=== PATIENT | female | born 1995 | race Caucasian/White ===

== ENCOUNTER 2018-03-16 13:30 | Emergency (ER) | payer BC ==
--- NOTE | 2018-03-16 14:44 | UC ---
Respiratory Complaint HPI - HPI Summary HPI Summary: 22 yo female with cough/sinus pressure and pain/congestion /post nasal drip x 1 week has felt feverish has had chills no CP or sob no n/v/d no uti symptoms sore throat and fatigue she has had mono hx T&A - History of Current Complaint Chief Complaint: UCRespiratory Stated Complaint: URI Time Seen by Provider: 03/16/18 14:34 Hx Obtained From: Patient Onset/Duration: Gradual Onset, Lasting Days Severity Initially: Mild Severity Currently: Mild Pain Intensity: 4 Pain Scale Used: 0-10 Numeric Character: Cough: Nonproductive Aggravating Factors: Nothing Associated Signs And Symptoms: Positive: Fever, Chills, Nasal Congestion, Hoarseness, Sinus Discomfort - Allergies/Home Medications Allergies/Adverse Reactions: Allergies Allergy/AdvReac Type Severity Reaction Status Date / Time No Known Allergies Allergy Verified 03/16/18 14:03 Home Medications: Home Medications Cetirizine* [ZyrTEC 10 MG TAB*] 10 mg PO DAILY 03/16/18 [History Confirmed 03/16] Norethindrone-E.estradiol-Iron [Blisovi Fe 1.5/30 1.5-30 mg-Mcg] 1 tab PO [History] PMH/Surg Hx/FS Hx/Imm Hx Previously Healthy: Yes - Surgical History Surgical History: Yes Surgery Procedure, Year, and Place: t&a - Social History Alcohol Use: Occasionally Substance Use Type: None Smoking Status (MU): Never Smoked Tobacco Review of Systems Constitutional: Fever, Chills, Fatigue Skin: Negative Eyes: Negative ENT: Sore Throat, Ear Ache, Nasal Discharge, Sinus Congestion, Sinus Pain/ Tenderness Respiratory: Cough Cardiovascular: Negative Gastrointestinal: Negative Genitourinary: Negative Motor: Negative Neurovascular: Negative Musculoskeletal: Negative Neurological: Negative Psychological: Negative All Other Systems Reviewed And Are Negative: Yes Physical Exam Triage Information Reviewed: Yes Appearance: Well-Appearing, No Pain Distress, Well-Nourished Vital Signs: Initial Vital Signs Temp 97.9 F 03/16/18 13:59 Pulse 60 03/16/18 13:59 Resp 18 03/16/18 13:59 BP 99/48 03/16/18 13:59 Pulse Ox 100 03/16/18 13:59 Vital Signs Reviewed: Yes Eyes: Positive: Conjunctiva Clear ENT: Positive: Hearing grossly normal, Pharynx normal, Nasal congestion, Nasal drainage, TM bulging, Sinus tenderness, Uvula midline. Negative: Tonsillar swelling, Tonsillar exudate, Trismus, Muffled voice, Hoarse voice, Dental tenderness Neck: Positive: Supple, Nontender, No Lymphadenopathy Respiratory: Positive: Lungs clear, Normal breath sounds, No respiratory distress, No accessory muscle use Cardiovascular: Positive: RRR, No Murmur Musculoskeletal: Positive: ROM Intact, No Edema Neurological: Positive: Alert Psychological Exam: Normal Skin Exam: Normal UC Diagnostic Evaluation - Laboratory O2 Sat by Pulse Oximetry: 100 - normal/not hypoxic Respiratory Course/Dx - Differential Dx/Diagnosis Provider Diagnoses: acute sinusitis. bilateral serous otitis media Discharge - Sign-Out/Discharge Documenting (check all that apply): Patient Departure All imaging exams completed and their final reports reviewed: No Studies - Discharge Plan Condition: Stable Disposition: HOME Prescriptions: Amoxicillin PO (*) [Amoxicillin 875 MG (*)] 875 mg PO BID #14 tab Fluticasone NASAL SPRAY 50MCG* [Flonase NASAL SPRAY 50MCG*] 2 spray BOTH NARES BID #1 btl Patient Education Materials: Sinusitis (ED), Serous Otitis Media (ED) Referrals: No Primary Care Phys,NOPCP [Primary Care Provider] - Additional Instructions: recheck in 4-7 days if not better - Billing Disposition and Condition Condition: STABLE Disposition: Home
== END 2018-03-16 14:50 | disposition home or self-care (01) ==
LOC: UCEAST 13:30
DX: J01.90 Acute sinusitis, unspecified (principal); H65.93 Unspecified nonsuppurative otitis media, bilateral
CPT/HCPCS: 99202; G0463

== ENCOUNTER → 2018-06-02 19:13 | Emergency (ER) | payer BC ==
--- NOTE | 2018-06-02 22:00 | ED ---
Syncope/Near Syncope - HPI Summary HPI Summary: This patient is a 22 year old F presenting to [facility] accompanied by a friend with a chief complaint of syncopal episode since 17:30. 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 Pt notes that prior to her syncopal episode she had a sharp pain in her throat with inhalation. Pt reports that her episode was witnessed by several other students, she regained consciousness after 5-7 seconds and initially she did not know where she was and was unable to move. The patient rates the pain 0/10 in severity. Symptoms aggravated by exercise. Symptoms alleviated by nothing. Patient reports nausea, lightheadedness, back pain that began prior to her syncopal episode. Hx asthma. - History Of Current Complaint Chief Complaint: EDChestWallPain Time Seen by Provider: 06/02/18 21:49 Hx Obtained From: Patient Onset/Duration: Sudden Onset, Resolved Timing: Seconds Context: Witnessed, Loss Of Consciousness Activity At Onset: Other - pending down to set down her water bottle Associated Head Trauma: No Aggravating Factor(s): Exertion - exercise Alleviating Factor(s): Nothing Associated Signs And Symptoms: Lightheadedness, Other - nausea, back pain - Allergies/Home Medications Allergies/Adverse Reactions: Allergies Allergy/AdvReac Type Severity Reaction Status Date / Time No Known Allergies Allergy Verified 03/16/18 14:03 PMH/Surg Hx/FS Hx/Imm Hx Endocrine/Hematology History: Denies: Hx Diabetes Respiratory History: Reports: Hx Asthma Opthamlomology History: Denies: Hx Legally Blind EENT History: Denies: Hx Deafness - Surgical History Surgery Procedure, Year, and Place: t&a Infectious Disease History: No Infectious Disease History: Denies: Traveled Outside the [place] in Last 30 Days - Family History Known Family History: Negative: Diabetes - Social History Alcohol Use: Occasionally Substance Use Type: Reports: None Smoking Status (MU): Never Smoked Tobacco Review of Systems Negative: Fever Negative: Epistaxis Positive: Nausea Positive: Myalgia - back pain Neurological: Other - lightheadedness Positive: Syncope All Other Systems Reviewed And Are Negative: Yes Physical Exam - Summary Physical Exam Summary: Appearance: Well-appearing, Well-nourished, lying in bed comfortably Skin: Warm, dry, no obvious rash Eyes: sclera anicteric, no conjunctival pallor ENT: mucous membranes moist, pharynx appears normal Neck: Supple, nontender Respiratory: Clear to auscultation, no signs of respiratory distress Cardiovascular: Normal S1, S2. No murmurs. Normal distal pulses in tibial and radial bilaterally. Abdomen: Soft, nontender, normal active bowel sounds present Musculoskeletal: Normal, Strength/ROM Intact Neurological: A&Ox3, awake and alert, mentation is normal, speech is fluent and appropriate Psychiatric: affect is normal, does not appear anxious or depressed Triage Information Reviewed: Yes Vital Signs On Initial Exam: Initial Vitals Temp Pulse Resp BP Pulse Ox 97.8 F 73 16 119/81 100 06/02/18 19:18 06/02/18 19:18 06/02/18 19:18 06/02/18 19:18 06/02/18 19:18 Vital Signs Reviewed: Yes Diagnostics - Vital Signs Vital Signs Temp Pulse Resp BP Pulse Ox 06/02/18 21:48 98.3 F 06/02/18 19:18 97.8 F 73 16 119/81 100 - Laboratory Lab Statement: Any lab studies that have been ordered have been reviewed, and results considered in the medical decision making process. - EKG 22:55 Cardiac Rate: Bradycardia - at 58 bpm EKG Rhythm: Sinus Bradycardia ST Segment: Normal Ectopy: None - sinus bradycardia at 58 with P waves, QRS complex, and T waves are within n Course/Dx Course Of Treatment: This patient is a 22 year old F presenting to [facility] accompanied by a friend with a chief complaint of syncopal episode since 17:30. 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 Pt notes that prior to her syncopal episode she had a sharp pain in her throat with inhalation. Patient reports nausea, lightheadedness, back pain that began prior to her syncopal episode. Hx asthma. Test results with no significant abnormalities. An EKG reveals sinus bradycardia at 58 with P waves, QRS complex, and T waves are within normal limits, T waves and intervals are normal, no ischemic changes. This is a normal EKG. Patient will be discharged with follow up from PCP. Dx vasovagal syncope. The patient is agreeable with this plan. - Diagnoses Provider Diagnoses: Vasovagal syncope Discharge - Sign-Out/Discharge Documenting (check all that apply): Patient Departure - discharge - Discharge Plan Condition: Good Disposition: HOME Patient Education Materials: Syncope (ED) Referrals: [facility] [Outside] - If Needed - Billing Disposition and Condition Condition: GOOD Disposition: Home - Attestation Statements Document Initiated by Armidaibe: Yes Documenting Scribe: Ashley Florian Provider For Whom Armidaibe is Documenting (Include Credential): Vick De La Torre MD Scribe Attestation: Ashley Clemens, scribed for Vick De La Torre MD on 06/03/18 at 0434. Scribe Documentation Reviewed: Yes Provider Attestation: The documentation as recorded by the Ashley trujillo accurately reflects the service I personally performed and the decisions made by Vick arias MD Status of Scribe Document: Viewed
[2018-06-02 23:20] VITALS: BP 117/71
== END | disposition home or self-care (01) ==
LOC: ED 19:13
DX: R55 Syncope and collapse (principal); J45.909 Unspecified asthma, uncomplicated; R00.1 Bradycardia, unspecified
CPT/HCPCS: 36415; 84702; 93005; 99282

== ENCOUNTER 2019-02-07 22:02 | Emergency (ER) | payer BC ==
[2019-02-08 00:29] LABS: ABS Eosinophils 0.3 10^3/ul (0-0.6); ABS Lymphocytes 1.2 10^3/ul (1.0-4.8); ABS Monocytes 0.6 10^3/ul (0-0.8); ABS Neutrophils 3.2 10^3/ul (1.5-7.7); Eosinophil % 4.9 %; Hematocrit 40 % (35-47); Hemoglobin 13.6 g/dL (12.0-16.0); Lymphocyte % 23.4 %; Mean Corpuscular HGB Conc 34 g/dL (31-36); Mean Corpuscular Hemoglobin 32 pg (27-31); Mean Corpuscular Volume 94 fL (80-97); Mean Platelet Volume 9.7 fL (7.4-10.4); Nucleated Red Blood Cells % 0.1; Platelet Count 188 10^3/uL (150-450); Red Blood Count 4.25 10^6 /uL (3.70-4.87); Red Cell Distribution Width 13 % (10-15); White Blood Count 5.3 10^3/uL (3.5-10.8)
[2019-02-08] MEDS ORDERED: Butalb/Acetamin/Caff TAB* 1 TAB PO ONE (01:36)
--- NOTE | 2019-02-08 01:45 | ED ---
Respiratory - HPI Summary HPI Summary: Pt is a 23 y/o F presenting to the ED with a chief complaint of an upper respiratory illness. She states she has been sick for about 2 weeks now with a sore throat, cough, shoulder pain, neck pain, and sinus pain. However, since yesterday, 02/06/19, she developed a migraine characterized by photophobia, headache, and nausea. She denies phonophobia, vomiting, or abd pain. On the way here she had some chest tightness that has since resolved. - History of Current Complaint Chief Complaint: EDHeadache Stated Complaint: SICK FOR A COUPLE OF WEEKS,HEADACHE,DIZZY PER PT Time Seen by Provider: 02/08/19 01:24 Hx Obtained From: Patient Onset/Duration: Gradual Onset, Lasting Weeks, Still Present Timing: Constant Initial Severity: Mild Current Severity: Moderate Pain Intensity: 6 Character: Cough (Nonproductive) Sputum Amount: None Aggravating Factor(s): Nothing Alleviating Factor(s): Nothing Associated Signs and Symptoms: Chest Pain, Nasal Congestion, Sinus Discomfort - Allergy/Home Medications Allergies/Adverse Reactions: Allergies Allergy/AdvReac Type Severity Reaction Status Date / Time No Known Allergies Allergy Verified 02/08/19 01:29 PMH/Surg Hx/FS Hx/Imm Hx Previously Healthy: Yes Endocrine/Hematology History: Denies: Hx Diabetes Respiratory History: Reports: Hx Asthma Sensory History: Denies: Hx Legally Blind, Hx Deafness Opthamlomology History: Denies: Hx Legally Blind - Surgical History Surgery Procedure, Year, and Place: t&a Infectious Disease History: No Infectious Disease History: Denies: Traveled Outside the [place] in Last 30 Days - Family History Known Family History: Negative: Diabetes - Social History Alcohol Use: Occasionally Hx Substance Use: Yes Substance Use Type: Reports: Marijuana Substance Use Comment - Amount & Last Used: socially Hx Tobacco Use: No Smoking Status (MU): Never Smoked Tobacco Review of Systems Positive: Photophobia ENT: Other - sinus discomfort Positive: Sore Throat. Negative: Other - phonophobia Positive: Chest Pain Positive: Cough Positive: Nausea. Negative: Abdominal Pain, Vomiting Positive: Myalgia - neck/shoulder pain Positive: Headache All Other Systems Reviewed And Are Negative: Yes Physical Exam - Summary Physical Exam Summary: Constitutional: Well-developed, Well-nourished, Alert. (-) Distressed Skin: Warm, Dry HENT: Normocephalic; Atraumatic. Some nasal congestion Eyes: Pt with eyes closed d/t sensitivity to light Neck: Musculoskeletal ROM normal neck. (-) JVD, (-) Stridor, (-) Tracheal deviation Cardio: Rhythm regular, rate normal, Heart sounds normal; Intact distal pulses; The pedal pulses are 2+ and symmetric. Radial pulses are 2+ and symmetric. (-) Murmur Pulmonary/Chest wall: Effort normal. (-) Respiratory distress, (-) Wheezes, (-) Rales Abd: Soft, (-) tenderness, (-) Distension, (-) Guarding, (-) Rebound Musculoskeletal: (-) Edema Lymph: (-) Cervical adenopathy Neuro: Alert, Oriented x3 Psych: Mood and affect Normal Triage Information Reviewed: Yes Vital Signs On Initial Exam: Initial Vitals Temp Pulse Resp BP Pulse Ox 98.3 F 82 16 116/74 98 02/07/19 22:05 02/07/19 22:05 02/07/19 22:05 02/07/19 22:05 02/07/19 22:05 Vital Signs Reviewed: Yes Procedures - Sedation Patient Received Moderate/Deep Sedation with Procedure: No Diagnostics - Vital Signs Vital Signs Temp Pulse Resp BP Pulse Ox 02/07/19 23:55 98.7 F 83 16 116/75 99 02/07/19 22:05 98.3 F 82 16 116/74 98 - Laboratory Lab Results: Lab Results 02/07/19 02/07/19 Range/Units 23:55 23:55 WBC 5.3 (3.5-10.8) 10^3/uL RBC 4.25 (3.70-4.87) 10^6 /uL Hgb 13.6 (12.0-16.0) g/dL Hct 40 (35-47) % MCV 94 (80-97) fL MCH 32 H (27-31) pg MCHC 34 (31-36) g/dL RDW 13 (10-15) % Plt Count 188 (150-450) 10^3/uL MPV 9.7 (7.4-10.4) fL Neut % (Auto) 60.7 % Lymph % (Auto) 23.4 % [place] % (Auto) 10.7 % Eos % (Auto) 4.9 % Baso % (Auto) 0.3 % Absolute Neuts (auto) 3.2 (1.5-7.7) 10^3/ul Absolute Lymphs (auto) 1.2 (1.0-4.8) 10^3/ul Absolute Monos (auto) 0.6 (0-0.8) 10^3/ul Absolute Eos (auto) 0.3 (0-0.6) 10^3/ul Absolute Basos (auto) 0.0 (0-0.2) 10^3/ul Absolute Nucleated RBC 0.0 10^3/ul Nucleated RBC % 0.1 C-Reactive Protein 71.73 H (<8.01) mg/L Result Diagrams: 02/07/19 23:55 Lab Statement: Any lab studies that have been ordered have been reviewed, and results considered in the medical decision making process. Disposition - Course Course Of Treatment: Patient is here with a migraine headache secondary to a viral syndrome. Patient's had 2 different viral syndromes over the past 3 weeks so she's been exposed to horses at school. Patient has a migraine with photophobia, nausea, headache. Patient has a normal neurologic exam is overall well-appearing. Patient was given a dose of Fioricet here. Patient started on antibiotics for sinusitis. Patient did not need any further testing here - Diagnoses Provider Diagnoses: Migraine headache, Viral syndrome Discharge ED - Sign-Out/Discharge Documenting (check all that apply): Patient Departure - Discharge Plan Condition: Stable Disposition: HOME Prescriptions: Ondansetron TAB* [Zofran 4 MG Tab*] 4 mg PO Q8HR #12 tab Patient Education Materials: Migraine Headache (ED), Viral Syndrome (ED) Forms: *School Release Referrals: [facility] [Primary Care Provider] - Additional Instructions: Please continue the antibiotics you are already taking. Take 600mg Ibuprofen as needed for the pain. Follow up with [facility] in 1-2 days. Come back to the emergency department with any new or worsening symptoms, including difficulty speaking, weakness on one side of your body, or inability to swallow. - Billing Disposition and Condition Condition: STABLE Disposition: Home - Attestation Statements Document Initiated by Scribe: Yes Documenting Scribe: Danica Florence Provider For Whom Scribe is Documenting (Include Credential): Reuben Vizciano MD. Scribe Attestation: I, Danica Florence, scribed for Reuben Vizcaino MD. on 02/08/19 at 0423. Scribe Documentation Reviewed: Yes Provider Attestation: The documentation as recorded by the scribe, Danica Florence accurately reflects the service I personally performed and the decisions made by me, Reuben Vizcaino MD. Status of Scribe Document: Viewed
[2019-02-08] MEDS ORDERED: Ondansetron TAB* 4 MG PO ONE (01:53)
[2019-02-08 02:12] VITALS: BP 112/75
== END 2019-02-08 02:07 | disposition home or self-care (01) ==
LOC: ED 22:02
DX: G43.909 Migraine, unspecified, not intractable, without status migrainosus (principal); J32.9 Chronic sinusitis, unspecified
CPT/HCPCS: 36415; 85025; 86140; 99282; A9270-GY